=== PATIENT | male | born 1955 | race Caucasian/White ===

== ENCOUNTER → 2018-07-06 | Outpatient (CLI) | payer BC, OTHER ==
--- NOTE | 2018-07-06 10:10 | PCVCIMAG ---
APPROVED REPORT Study performed: 07/06/2018 09:00:22 EXAM: Comprehensive 2D, Doppler, and color-flow Echocardiogram Patient Location: Echo lab Status: routine BSA: 1.70 HR: 49 bpmBP: 104/70 mmHg Rhythm: NSR Other Information Study Quality: Good Risk Factors: Cardiac Risk Factors: HTN Indications Hypertension/HDD Bioprosthetic Aortc Valve 2D Dimensions IVSd: 8.89 (7-11mm)LVOT Diam: 20.44 (18-24mm) LVDd: 42.20 mm PWd: 8.56 (7-11mm)Ascending Ao: 30.08 (22-36mm) LVDs: 22.34 (25-40mm) Left Atrium: 28.60 (27-40mm) Aortic Root: 24.53 mm LV Single Plane 4CH: 70.32 % LV Single Plane 2CH: 72.08 % Biplane EF: 71.3 % Volumes Left Atrial Volume (Systole) Single Plane 4CH: 41.57 mLSingle Plane 2CH: 43.15 mL LA ESV Index: 26.00 mL/m2 Aortic Valve AoV Peak Jian.: 2.98 m/s AO Peak Gr.: 35.60 mmHgLVOT Max P.33 mmHg AO Mean Gr.: 22.67 mmHgLVOT Mean P.64 mmHg AO V2 Mean: 2.25 m/sLVOT Max V: 1.26 m/s AO V2 VTI: 73.04 cmLVOT Mean V: 0.91 m/s SKY (VTI): 1.51 pc8VHVF V1 VTI: 33.54 cm SKY Vmax: 1.38 cm2 SV (LVOT): 110.03 mL Mitral Valve E/A Ratio: 1.2 MV Decel. Time: 258.54 ms MV E Max Jian.: 1.25 m/s MV A Jian.: 1.03 m/s IVRT: 83.04 ms TDI E/Lateral E': 6.58E/Medial E': 13.89 Medial E' Jian.: 0.09 m/s Lateral E' Jian.: 0.19 m/s Pulmonary Valve PV Peak Jian.: 0.92 m/sPV Peak Gr.: 3.37 mmHg Pulmonary Vein P Vein S: 0.65 m/sP Vein A: 0.47 m/s P Vein D: 0.65 m/sP Vein A Dur.: 96.9 msec P Vein S/D Ratio: 1.00 Tricuspid Valve TR Peak Jian.: 2.56 m/s TR Peak Gr.: 26.12 mmHg Left Ventricle The left ventricle is normal size. There is normal LV segmental wall motion. There is normal left ventricular wall thickness. Left ventricular systolic function is normal. The left ventricular ejection fraction is within the normal range. LVEF is 55-60%. The left ventricular diastolic function is normal. Right Ventricle The right ventricle is normal size. The right ventricular systolic function is normal. Atria Left atrium is mildly dilated. The right atrium size is normal. Aortic Valve Bioprosthetic Aortic Valve. Peak gradient 36mmHg. Mean Gradient 23mmHg. Trace aortic regurgitation. There is no aortic valvular stenosis. Mitral Valve The mitral valve is normal in structure. There is no mitral valve regurgitation noted. No evidence of mitral valve stenosis. Tricuspid Valve The tricuspid valve is normal in structure. Trace tricuspid regurgitation. Pulmonary artery pressure is 34mmHg. Pulmonic Valve The pulmonary valve is normal in structure. Trace pulmonic regurgitation. Great Vessels The aortic root is normal in size. IVC is normal in size and collapses >50% with inspiration. Pericardium There is no pericardial effusion. <Conclusion> The left ventricle is normal size. There is normal left ventricular wall thickness. Left ventricular systolic function is normal. The right ventricle is normal size. Left atrium is mildly dilated. The right atrium size is normal. Bioprosthetic Aortic Valve. Peak gradient 36mmHg. Mean Gradient 23mmHg. The mitral valve is normal in structure. Trace tricuspid regurgitation. Pulmonary artery pressure is 34mmHg.
== END | disposition home or self-care (01) ==
LOC: PCVCIMAG 08:56
PROVIDERS: ATTEND Internal Medicine Cardiovascular Disease
DX: I25.10 Atherosclerotic heart disease of native coronary artery without angina pectoris (principal); I10 Essential (primary) hypertension; R00.1 Bradycardia, unspecified
CPT/HCPCS: 93306

== ENCOUNTER → 2018-07-19 | Outpatient (CLI) | payer BC ==
--- NOTE | 2018-07-19 11:16 | PCVCIMAG ---
APPROVED REPORT Study performed: 07/19/2018 09:39:35 Exam: Stress Echocardiogram Indication: Chest pain , CAD Patient Location: Echo lab Stress Nurse: Lizzy Gibbons RN Room #: 1 Status: routine Ht: 5 ft 5 in HR: 56 bpm BP: 118/78 mmHg Rhythm: Sinus Bradycardia Medical History Medical History: Aortic valve replacement,, CAD non obstructive Cardiac Risk Factors: Hyperlipidemia Previous Cardiac Procedures: PCI Pretest Chest Pain Characteristics: No chest pain Exercise History: Physically active Procedure The patient underwent an Exercise Stress Test using the Nino Protocol. Blood pressure, heart rate, and EKG were monitored. An Echocardiogram was performed by clinical technician in four stages in quad fashion. At peak stress, four selected images were obtained and placed side by side with resting images for comparison. Stress Test Details Stress Test: Exercise stress testing was performed using a Nino protocol. HR Resting HR: 56 bpmMax Heart Rate (APMHR): 158 bpm Max HR Achieved: 146 bpmTarget HR (85% APMHR): 134 bpm % of APMHR: 92 Recovery HR: 74 bpm HR response to stress: Normal HR response to stress BP Resting BP: 118/78 mmHg Max BP: 154/84 mmHg Recovery BP: 132/78 mmHg BP response to stress: Normal blood pressure response to stress. ECG Resting ECG: Sinus Bradycardia Stress ECG: Sinus Rhythm ST Change: Non-ischemic Arrhythmia: rare PVCs Recovery ECG: Sinus Rhythm Recovery ST Change: Non-ischemic Recovery Arrhythmia: None Clinical Reason for Termination: Maximal effort Stress Symptoms: fatigue Exercise duration: 13 min 03 sec Highest Stage Achieved: Stage 5: 5.0 mph at 18% grade. Exercise capacity: 17.2 METs Overall Exercise Capacity for Age: Excellent Angina Score: None No complications. Stress ECG Conclusion The patient exercised according to the NINO protocol for 13:01 mins; achieving a work level of 17.2 METS. The resting heart rate of 56 bpm bob to a maximum heart rate of 146 bpm. This value represent 92% of the maximal, age-predicted heart rate. The resting blood pressure of 118/78 mmHg, bob to a maximum blood pressure of 154/84 mmHg. The exercise test was stopped due to fatigue. Pre-Stress Echo The resting Echocardiogram showed normal left ventricular contractility with an estimated Ejection Fraction of about 55-60%. Normal wall motion in all segments on baseline images. Post-Stress Echo The stress Echocardiogram showed normal left ventricular contractility with an estimated Ejection Fraction of about 65-70%. Normal augmentation of wall motion in all segments on post stress images. Clinical No clinical or ECG evidence for ischemia. Conclusion Clinical Response: Non-ischemic Exercise Capacity: Superior Stress ECG Response: Non-ischemic Stress Echo Images: Non-ischemic No clinical, EKG or echocardiographic evidence for ischemia. No echocardiographic evidence for exercise induced ischemia. Normal stress echocardiogram with maximal exercise stress. <Conclusion> No clinical, EKG or echocardiographic evidence for ischemia. No echocardiographic evidence for exercise induced ischemia. Normal stress echocardiogram with maximal exercise stress.
== END | disposition home or self-care (01) ==
LOC: PCVCIMAG 13:23
PROVIDERS: ATTEND Internal Medicine Cardiovascular Disease
DX: I25.10 Atherosclerotic heart disease of native coronary artery without angina pectoris (principal); R07.9 Chest pain, unspecified; I35.9 Nonrheumatic aortic valve disorder, unspecified; I10 Essential (primary) hypertension; R00.1 Bradycardia, unspecified; E78.2 Mixed hyperlipidemia; R93.1 Abnormal findings on diagnostic imaging of heart and coronary circulation; R94.39 Abnormal result of other cardiovascular function study; E83.50 Unspecified disorder of calcium metabolism; E78.00 Pure hypercholesterolemia, unspecified; Z95.2 Presence of prosthetic heart valve
CPT/HCPCS: 93325; 93351